=== PATIENT | male | born 1960 | race Caucasian/White ===

== ENCOUNTER 2019-04-14 12:12 | Day surgery (SDC) | payer OTHER ==
[~2019-04-14] VITALS: Ht 177.8 cm; Wt 108.9 kg
[~2019-04-14 12:12] MED LIST: ASPI81TA85 PO; LOSA50TA88 PO; METO1TAB87 PO; NS 1,000 ML IV ONE; PROPOFOL 200 MG/20 ML VIAL As Ordered ONE
--- NOTE | 2019-04-14 13:27 | ROOR ---
Patient Name: Holland Martinez Procedure Date: 04/14/2019 1:06 PM Date of : 1960 Age: 58 Room: [facility] Gender: Male Note Status: Finalized Procedure: Total Colonoscopy to Cecum + Cold Snare Polypectomy Indications: High risk colon cancer surveillance: Personal history of colonic polyps, Last colonoscopy: 2011 Providers: Gunner Perales MD Referring MD: KADE CERDA JR, MD Requesting Provider: Medicines: Monitored Anesthesia Care Complications: No immediate complications. Procedure: Pre-Anesthesia Assessment: - The heart rate, respiratory rate, oxygen saturations, blood pressure, adequacy of pulmonary ventilation, and response to care were monitored throughout the procedure. The Colonoscope was introduced through the anus and advanced to the cecum, identified by appendiceal orifice and ileocecal valve. The colonoscopy was performed without difficulty. The patient tolerated the procedure well. The quality of the bowel preparation was excellent. Findings: The perianal and digital rectal examinations were normal. Non-bleeding internal hemorrhoids were found during retroflexion. The hemorrhoids were small and Grade I (internal hemorrhoids that do not prolapse). Multiple small and large-mouthed diverticula were found in the recto-sigmoid colon, sigmoid colon and descending colon. A medium polyp was found in the cecum. The polyp was sessile. The polyp was removed with a cold snare. Resection and retrieval were complete. The exam was otherwise without abnormality on direct and retroflexion views. Impression: - Non-bleeding internal hemorrhoids. - Diverticulosis in the recto-sigmoid colon, in the sigmoid colon and in the descending colon. - One medium polyp in the cecum, removed with a cold snare. Resected and retrieved. - The examination was otherwise normal on direct and retroflexion views. - The exam was otherwise normal to the cecum. Recommendation: - Patient has a contact number available for emergencies. The signs and symptoms of potential delayed complications were discussed with the patient. Return to normal activities tomorrow. Written discharge instructions were provided to the patient. - High fiber diet. - Discharge patient to home. - Continue present medications. - Await pathology results. - Telephone GI clinic for pathology results in 1 week. - Repeat colonoscopy in 5 years for surveillance. - Return to referring physician. - The findings and recommendations were discussed with the patient's family. Gunner Perales MD Gunner Perales MD 04/14/2019 1:26:37 PM Electronically signed by Gunner Perales MD Number of Addenda: 0 Note Initiated On: 04/14/2019 1:06 PM Estimated Blood Loss: Estimated blood loss: none.
[2019-04-14 13:50] VITALS: BP 147/82
== END 2019-04-14 13:25 | disposition home or self-care (01) ==
LOC: M OPP 12:12
PROVIDERS: ATTEND Internal Medicine Gastroenterology
DX: Z12.11 Encounter for screening for malignant neoplasm of colon (principal); Z86.010 Personal history of colon polyps; K64.0 First degree hemorrhoids; D12.0 Benign neoplasm of cecum; K57.30 Diverticulosis of large intestine without perforation or abscess without bleeding; G47.30 Sleep apnea, unspecified; I10 Essential (primary) hypertension; Z79.82 Long term (current) use of aspirin; Z79.899 Other long term (current) drug therapy; Z87.891 Personal history of nicotine dependence

== ENCOUNTER → 2021-03-12 | Outpatient (CLI) | payer OTHER ==
[~2021-03-12] MED LIST changes: -ASPI81TA85 PO; +ASPI81TA86 PO; -NS 1,000 ML IV ONE; -PROPOFOL 200 MG/20 ML VIAL As Ordered ONE
--- NOTE | 2021-03-12 11:21 | REP ---
INDICATION: PALPABLE SUBCUTANEOUS MASS. Right upper quadrant. COMPARISON: None. TECHNIQUE: Right upper quadrant sonography. FINDINGS: Scanning through the right upper quadrant of the abdomen demonstrates a normal sized, thin-walled gallbladder without evidence of stone or polyp. Common bile duct is normal measuring 3.7 cm in greatest diameter. No focal liver lesion is seen. The liver is less than optimally seen in poorly penetrated echodense consistent with fatty infiltration. No focal liver lesion is appreciated. The pancreas is obscured by abdominal gas. The right kidney is not seen in the renal fossa or in the right lower quadrant. Scanning in the area of the history of palpable mass shows no ultrasound evidence of mass, abnormal fluid collection, abdominal wall hernia, or other abnormality. IMPRESSION: Evidence of fatty infiltration of the liver. No mass or abnormal fluid collection seen in the anterior abdominal wall. The right kidney is not observed in the right renal fossa or right lower quadrant. Question congenital absence versus other malformation. Consider nuclear renal scan versus CT study.. <Electronically signed by Ubaldo Hampton > 03/12/21 [id number]
== END ==
LOC: M RAD 09:48
PROVIDERS: ATTEND Internal Medicine
DX: D48.5 Neoplasm of uncertain behavior of skin (principal)

== ENCOUNTER → 2021-06-11 | Outpatient (CLI) | payer OTHER ==
[~2021-06-11] MED LIST changes: +ISOVUE-370 76% 100ML VIAL As Ordered ONE
--- NOTE | 2021-06-12 10:44 | REP ---
INDICATION: RT KIDNEY NOT OBSERVED ON U/S IMAGING. COMPARISON: None. TECHNIQUE: Imaging protocol: Computed tomography of the abdomen and pelvis without and with IV contrast. Contiguous 3 mm thick axial projection images were obtained through the abdomen and pelvis. 2D sagittal and coronal reconstructions were performed. Radiation optimization: All CT scans at this facility use at least one of these dose optimization techniques: automated exposure control; mA and/or kV adjustment per patient size (includes targeted exams where dose is matched to clinical indication); or iterative reconstruction. Contrast material: ISOVUE 370; Contrast volume: 100 ml; Contrast route: INTRAVENOUS (IV). FINDINGS: Heart and lung bases: The lung bases are clear. There are no pleural effusions. The heart size is normal. There is no pericardial effusion. There is calcific vascular disease of the coronary arteries. Liver: There is mild fatty infiltration. There are benign calcified granulomas. Gallbladder: The gallbladder is partially evacuated. Spleen: Benign calcified splenic granulomas. Pancreas: Normal. Adrenal glands: Normal. Kidneys/bladder: The right kidney appears congenitally absent. There is no evidence of prior surgery. There is no evidence of the right renal artery or vein. The left kidney is normal. The urinary bladder is unremarkable. Pelvic structures: The prostate gland measures 4.2 cm in transverse dimension. The seminal vesicles are unremarkable. There is no free fluid the pelvis. There are few reactive external iliac and inguinal lymph nodes, bilaterally. GI tract: There is moderate descending colonic and sigmoid diverticulosis without diverticulitis. There is scattered diverticuli throughout the remainder of the colon. The appendix is not demonstrated. Abdominal wall and mesentery: There is no mesenteric or retroperitoneal lymphadenopathy. There is a right inguinal hernia, containing normal fat, measuring 2.9 cm in diameter. Abdominal aorta and vascular structures: There is calcific vascular disease of the abdominal aorta. The inferior vena cava and portal venous system are normal. Bony structures: There is degenerative disc disease, L1-2 and L5-S1. There is spondylosis with degenerative grade 1 anterolisthesis, L5 on S1. The SI joints and hips are normal. IMPRESSION: 1. 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 The left kidney is normal. 2. Fatty liver infiltration. 3. Colonic diverticulosis without diverticulitis. 4. 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 5. Right inguinal hernia containing normal fat. 6. Degenerative disc disease lumbar spine. <Electronically signed by Jose Vela > 06/12/21 [id number]
== END ==
LOC: M RAD 14:19
PROVIDERS: ATTEND Internal Medicine
DX: R93.421 Abnormal radiologic findings on diagnostic imaging of right kidney (principal); K76.0 Fatty (change of) liver, not elsewhere classified; K40.91 Unilateral inguinal hernia, without obstruction or gangrene, recurrent; M51.36 Other intervertebral disc degeneration, lumbar region; I70.0 Atherosclerosis of aorta; K57.30 Diverticulosis of large intestine without perforation or abscess without bleeding
CPT/HCPCS: 74178; Q9967

== ENCOUNTER → 2022-10-08 | Outpatient (CLI) | payer OTHER ==
[~2022-10-08] MED LIST changes: -ISOVUE-370 76% 100ML VIAL As Ordered ONE; +LOSA50TA28 PO; -LOSA50TA88 PO
== END ==
LOC: M WUC 12:47
PROVIDERS: ATTEND Physician Assistant
DX: S30.0XXA Contusion of lower back and pelvis, initial encounter (principal); S80.01XA Contusion of right knee, initial encounter; W18.30XA Fall on same level, unspecified, initial encounter; Y92.009 Unspecified place in unspecified non-institutional (private) residence as the place of occurrence of the external cause

== ENCOUNTER → 2023-12-08 | Outpatient (CLI) | payer OTHER ==
[2023-12-08 12:19] LABS: PLATELET COUNT, AUTOMATED 389 10^3/uL (150-450)
[2023-12-08 12:38] LABS: INR 1.03; PARTIAL THROMBOPLASTIN TIME 29.9 SECONDS (24.8-34.2); PROTHROMBIN TIME 13.2 SECONDS (12.5-14.5)
== END ==
LOC: M PLALAB 09:26
PROVIDERS: ATTEND Physician Assistant
DX: Z01.818 Encounter for other preprocedural examination (principal)